=== PATIENT | male | born 1955 | race Caucasian/White ===

== ENCOUNTER 2023-12-26 07:53 | Outpatient (CLI) | payer MEDICARE, OTHER, SELFPAY ==
--- NOTE | 2023-12-26 08:15 | CRLHL7_ITS ---
For Patients: As a result of the Century Cures Act, medical imaging exams and procedure reports are released immediately into your electronic medical record. You may view this report before your referring provider. If you have questions, please contact your health care provider. EXAM: MRI OF THE LEFT KNEE, WITHOUT CONTRAST CLINICAL INDICATION: Left knee pain. Assess meniscal tear. COMPARISON PLAIN FILMS: 05/30/2020. COMPARISON CROSS-SECTIONAL IMAGING STUDIES: None available at time of interpretation. TECHNICAL: Axial, sagittal and coronal T1, PD, PD FS and T2 FS images. Knee coil. FINDINGS: MEDIAL COMPARTMENT: Medial Meniscus: Irregular tear and high-grade volume loss at the body posterior horn junction. Additional irregular chair and volume loss along the femoral articular surface and free edge in the posterior horn and free edge of the body of the medial meniscus. Loss of hoop stress with peripheral extrusion of the body of the medial meniscus. The root attachments are intact. 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 - LATERAL COMPARTMENT: Lateral Meniscus: Normal size and morphology without tear. Articular Cartilage: Moderate chondromalacia near the intercondylar notch (grade 3). Mild subchondral edema anteriorly. - PATELLOFEMORAL COMPARTMENT: Articular Cartilage: Moderate to full-thickness chondromalacia throughout the patella and medial trochlear groove (grade 3-4). Mild chondral fissuring in the lateral trochlear groove (grade 2). - CRUCIATE LIGAMENTS: Anterior Cruciate Ligament: Mucoid degeneration of the ACL. No ACL tear. Posterior Cruciate Ligament: Normal. - MEDIAL COLLATERAL LIGAMENT AND POSTEROMEDIAL CORNER COMPLEX: Medial Collateral Ligament: Normal. Medial Head of the Gastrocnemius and Semimembranosus Tendons: Normal. - LATERAL COLLATERAL LIGAMENT COMPLEX AND POSTEROLATERAL CORNER COMPLEX: Fibular Collateral Ligament: Normal. Distal Biceps Femoris Tendon Complex: Normal. Iliotibial Band: Normal. Popliteus Tendon: Normal. Posterolateral Corner Capsule: Normal. - EXTENSOR MECHANISM: Distal Quadriceps Tendon: Normal. Patellar Tendon: Normal. Medial Patellar Retinaculum and Medial Patellofemoral Ligament: Normal. Lateral Patellar Retinaculum: Normal. Normal patellar alignment. Patella deysi. Normal trochlear depth. Normal lateral trochlear inclination. - JOINT SPACE: Effusion: Small knee joint effusion and popliteal cyst with mild synovitis. Joint Bodies: None seen. - OSSEOUS STRUCTURES: No fracture, marrow edema or marrow replacement process. - PERIARTICULAR SOFT TISSUES: Periarticular Cysts or Ganglia: Posterior inferior and posterior superior capsular ganglia. Bursae: No prepatellar, superficial infrapatellar, deep infrapatellar, pes anserinus or semimembranosus/MCL bursitis. Musculature: No muscle atrophy or muscle edema. Subcutaneous and Soft Tissues: No subcutaneous or soft tissue mass, edema or fluid collection. Neurovascular Structures: Normal. IMPRESSION: 1. Tear and volume loss in the body and posterior horn of the medial meniscus with loss of hoop stress. 2. 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 3. Moderate chondromalacia in the lateral compartment near the intercondylar notch. 4. Moderate full-thickness chondromalacia throughout the majority of the patellofemoral compartment. 5. Mucoid degeneration of the ACL. 6. Small knee joint effusion and popliteal cyst with mild synovitis. 7. Posterior capsular ganglia. Dictated by Gene Caba MD @ 12/26/2023 11:26:49 AM (Electronically Signed)
== END 2023-12-26 07:54 | disposition home or self-care (01) ==
LOC: MRI 07:55
PROVIDERS: PCP Internal Medicine; Visit Provider Internal Medicine
DX: M25.562 Pain in left knee (principal); S83.242A Other tear of medial meniscus, current injury, left knee, initial encounter; M94.262 Chondromalacia, left knee; M25.462 Effusion, left knee; M71.22 Synovial cyst of popliteal space [Baker], left knee; S89.90XA Unspecified injury of unspecified lower leg, initial encounter
CPT/HCPCS: 73721

== ENCOUNTER 2024-01-23 08:19 | Outpatient (CLI) | payer MEDICARE, OTHER, SELFPAY | END 2024-01-23 08:20 | disposition home or self-care (01) | PROVIDERS: PCP Internal Medicine; Visit Provider Internal Medicine | DX: I10 Essential (primary) hypertension (principal); E78.5 Hyperlipidemia, unspecified; E11.9 Type 2 diabetes mellitus without complications; Z12.5 Encounter for screening for malignant neoplasm of prostate | CPT/HCPCS: 80053; 80061; 82043; 82570; G0103 ==

== ENCOUNTER 2025-01-27 08:45 | Outpatient (CLI) | payer MEDICARE, OTHER, SELFPAY | END 2025-01-27 08:46 | disposition home or self-care (01) | LOC: NFLDREF 02-01 10:02 | PROVIDERS: PCP Internal Medicine; Referring Provider Internal Medicine; Visit Provider Internal Medicine | DX: E78.5 Hyperlipidemia, unspecified (principal); M19.90 Unspecified osteoarthritis, unspecified site; E11.9 Type 2 diabetes mellitus without complications; I10 Essential (primary) hypertension | CPT/HCPCS: 80053; 80061; 82043; 82570 ==